=== PATIENT | female | born 1960 | race Asian ===

== ENCOUNTER 2018-06-13 10:45 | Emergency (ER) | payer SELFPAY ==
[~2018-06-13] VITALS: Ht 167.6 cm; Wt 72.6 kg
[2018-06-13 10:52] VITALS: Ht 167.6 cm; Wt 72.6 kg
[2018-06-13 12:55] VITALS: BP 170/72
== END 2018-06-13 12:55 | disposition home or self-care (01) ==
LOC: ED 10:45
DX: Z09 Encounter for follow-up examination after completed treatment for conditions other than malignant neoplasm (principal)

== ENCOUNTER 2018-06-13 10:47 | Emergency (ER) | payer OTHER ==
[~2018-06-13] VITALS: Ht 165.1 cm; Wt 57.2 kg
[2018-06-13 10:50] VITALS: Ht 165.1 cm; Wt 57.2 kg
[2018-06-13 13:30] LABS: BASOPHIL % 0.7 % (0-2); PLATELET COUNT 248 x10^3mcL (130-400)
[2018-06-13 13:36] LABS: RED CELL DISTRIBUTION WIDTH 15.7 % (11.5-14.5)
[2018-06-13 13:39] LABS: CALCIUM 9.1 mg/dL (8.5-10.1); CARBON DIOXIDE 29.8 mmol/L (21-32); CHLORIDE SERUM 105 mmol/L (98-107); CREATININE SERUM 0.8 mg/dL (0.6-1.0); GFR1 > 60 mL/min; GLUCOSE SERUM 136 mg/dL (74-106); POTASSIUM SERUM 3.1 mmol/L (3.5-5.1); SODIUM SERUM 146 mmol/L (136-145)
[2018-06-13 13:45] LABS: ALBUMIN 3.9 g/dL (3.4-5.0); ALKALINE PHOSPHATASE 65 U/L (46-116); ALT/SGPT 28 U/L (14-59); AST/SGOT 33 U/L (15-37); BILIRUBIN TOTAL 0.33 mg/dL (0.20-1.00); TOTAL PROTEIN, SERUM 7.5 g/dL (6.4-8.2)
[2018-06-13 14:31] VITALS: BP 120/92
== END 2018-06-13 15:40 | disposition home or self-care (01) ==
LOC: ED 10:47
PROVIDERS: Emergency Medicine
DX: R10.9 Unspecified abdominal pain (principal); E87.6 Hypokalemia; I10 Essential (primary) hypertension; E11.9 Type 2 diabetes mellitus without complications; V89.2XXA Person injured in unspecified motor-vehicle accident, traffic, initial encounter; Y93.73 Activity, racquet and hand sports; Y92.488 Other paved roadways as the place of occurrence of the external cause; Y99.8 Other external cause status
CPT/HCPCS: 36415; Q0092; Q9967

== ENCOUNTER 2018-06-15 12:40 | Emergency (ER) | payer OTHER ==
[~2018-06-15] VITALS: Ht 160 cm; Wt 59.9 kg
[2018-06-15 12:46] VITALS: Ht 160 cm; Wt 59.9 kg
[2018-06-15 13:44] VITALS: BP 148/80
== END 2018-06-15 13:44 | disposition home or self-care (01) ==
LOC: ED 12:40
DX: Z02.79 Encounter for issue of other medical certificate (principal)